=== PATIENT | male | born 1975 | race Caucasian/White ===

== ENCOUNTER 2022-02-27 09:58 | Emergency (ER) | payer OTHER, SELFPAY ==
[2022-02-27 10:28] VITALS: BP 153/89; PULSE 79; RESP 14; TEMP 36.3; O2SAT 97; BMI 35.9
--- NOTE | 2022-02-27 10:30 | DI.RAD.S_ITS ---
PROCEDURE: XR RIBS RT MIN 3V W CXR 1V INDICATIONS: fall onto R ribs with pain TECHNIQUE: 3 views of the right ribs were acquired, along with a single view chest. COMPARISON: None. FINDINGS: Surgical changes and devices: None. Bones and chest wall: No fractures or dislocations. No suspicious bony lesions. Overlying soft tissues appear unremarkable. Lungs and pleura: No pleural effusions or pneumothorax. Lungs appear clear. Mediastinum: Mediastinal contours appear normal. Heart size is normal. IMPRESSION: No visualized acute fracture or dislocation. However, if clinical concern and/or pain persist, short interval imaging followup in 7-10 days is recommended, as occult injury cannot be definitively excluded. Dictated by: Dori Michaels M.D. on 02/27/2022 at 12:16 Approved by: Dori Michaels M.D. on 02/27/2022 at 12:16
--- NOTE | 2022-02-27 12:16 | ED.FALL ---
HPI - Fall General Chief Complaint: Fall Stated Complaint: fall, at work Time Seen by Provider: 02/27/22 10:04 Source: patient Mode of arrival: Ambulatory History of Present Illness HPI Narrative: 47-year-old male nonsmoker without any chronic medical history presents at the request of the walk-in clinic for evaluation of work-related injuries just prior to his arrival. He states that he was in his normal state of health and was stepping off of a boat and fell about 4 ft onto his right-sided ribs. He denies any head neck or back pain. He had no loss of consciousness and denies nausea, vomiting or diarrhea. He has right-sided rib pain only and states that he has sharp pain on the right lateral ribs that is worse with palpation, motion and deep breath. He does not feel short of breath but states it deep breath hurts. He denies any hemoptysis. He denies any abdominal pain or extremity pain. Related Data Previous Rx's Medication Instructions Recorded cyclobenzaprine 10 mg tablet 10 mg PO TID PRN muscle spasm #14 02/27/22 tabs ketorolac 10 mg tablet 10 mg PO Q6H PRN pain #14 tabs 02/27/22 lidocaine 5 % topical patch 1 patch topical DAILY #15 ea 02/27/22 (Lidoderm) Allergies Allergy/AdvReac Type Severity Reaction Status Date / Time acetaminophen [From VICODIN] Allergy Severe PASSED Verified 02/27/22 10:28 OUT hydrocodone [From VICODIN] Allergy Severe PASSED Verified 02/27/22 10:28 OUT Review of Systems Review of Systems Narrative: GENERAL: Denies chills, fatigue, malaise, fever, sweats. HEENT: Denies sinus pain, ear pain, sore throat, difficulty swallowing, dizziness. RESPIRATORY: Denies dyspnea, cough, wheezing, hemoptysis, sputum. CARDIOVASCULAR: See HPI GASTROINTESTINAL: Denies nausea, vomiting, abdominal pain, diarrhea, constipation, melena. : Denies dysuria, frequency, incontinence, hematuria, urinary retention. MUSCULOSKELETAL: denies weakness, joint pain, or bony pain SKIN: Denies rash, skin lesions, or other NEUROLOGIC: Denies weakness, headache, numbness, change in speech, confusion, seizures, incoordination. PSYCHIATRIC: No concerning psychosocial issues. 12 point review of systems is negative except for those stated above Patient History Social History Smoking Status: Never smoker Smoking Status: Never smoker alcohol intake frequency: holidays/special occasions only Substance Use Type: does not use Exam Narrative Exam Narrative: GENERAL: [47] year old patient appears stated age. Well-developed patient, in mild distress. GCS 15 HEAD: Atraumatic. Normocephalic. EYES: Pupils equal round and reactive. Extraocular motions intact. No scleral icterus. No injection or drainage. ENT: Nose without bleeding, purulent drainage. Throat without erythema, tonsillar hypertrophy or exudate. Airway patent. NECK: Trachea midline. Non tender CARDIOVASCULAR: Regular rate and rhythm without murmurs, gallops, or rubs. RESPIRATORY: Clear to auscultation. Breath sounds equal bilaterally. No wheezes, rales, or rhonchi. Right lateral rib pain to palpation, no crepitance, subcu emphysema or clicking. GASTROINTESTINAL: Abdomen soft, non-tender, nondistended. Pain stops at most inferior rib, special attention paid to right upper quadrant, no pain in abdomen, swelling, bruising, erythema EXTREMITIES: No edema or joint tenderness. BACK: Nontender without deformity or crepitance. No flank tenderness. NEURO: AOx3. SKIN: No rash or erythema of visible areas Initial Vital Signs Initial Vital Signs: Vital Signs Temperature 97.4 F L 02/27/22 10:28 Pulse Rate 79 02/27/22 10:28 Respiratory Rate 14 02/27/22 10:28 Blood Pressure 153/89 H 02/27/22 10:28 Pulse Oximetry 97 02/27/22 10:28 Oxygen Delivery Method 02/27/22 10:28 Course Orders Ordered: Discontinued Medications Ketorolac Tromethamine (Ketorolac 30 Mg/Ml Vial) 30 mg IM NOW ONE Stop: 02/27/22 12:26 Last Admin: 02/27/22 12:36 Dose: 30 mg Documented By: JAGRUTI Lidocaine (Lidocaine Patch 1 Each Adh..Patch) 1 each TOP NOW ONE Stop: 02/27/22 12:26 Last Admin: 02/27/22 12:36 Dose: 1 each Documented By: JAGRUTI Vital Signs Vital signs: Vital Signs - 8 hr 02/27/22 10:28 Temperature 97.4 F L Pulse Rate 79 Respiratory Rate 14 Blood Pressure 153/89 H Pulse Oximetry 97 Oxygen Delivery Method Room Air MDM - Fall Imaging Data Chest x-ray: Radiologist's Impression: [address] [address] XRay Report Signed Patient: Fahad Goldman MR#: [id number] : 1975 Acct:[id number] Age/Sex: 47 / M Date of Service: 02/27/22 Loc: ED Accession Number: [id number] ?? Procedure: XR ribs RT min 3V w CXR1V Ordering Provider: Viktor Morales D.O. PROCEDURE:? XR RIBS RT MIN 3V W CXR 1V ? INDICATIONS:? fall onto R ribs with pain ? TECHNIQUE:? 3 views of the right ribs were acquired, along with a single view chest.? ? COMPARISON:? None. ? FINDINGS:? ? Surgical changes and devices:? None.? ? Bones and chest wall:? No fractures or dislocations.? No suspicious bony lesions.? Overlying soft tissues appear unremarkable.? ? Lungs and pleura:? No pleural effusions or pneumothorax.? Lungs appear clear.? ? Mediastinum:? Mediastinal contours appear normal.? Heart size is normal.? ? IMPRESSION:? No visualized acute fracture or dislocation. However, if clinical concern and/or pain persist, short interval imaging followup in 7-10 days is recommended, as occult injury cannot be definitively excluded. ? ? Dictated by: Dori Michaels M.D. on 02/27/2022 at 12:16 ? ? Approved by: Dori Michaels M.D. on 02/27/2022 at 12:16 ? [facility] Narrative Medical decision making narrative: [47-year-old male with right-sided rib pain after fall from about 4 ft] Multiple etiologies for patient's symptoms considered including, but not limited to: [Rib fracture, contusion, musculoskeletal injury including spasm and inflammation, pneumothorax versus other] Prior Charts reviewed: Including walk-in clinic visit from earlier today Imaging reviewed: No fracture or pneumothorax Patient's symptoms improved over duration of stay with above-stated therapies. Findings and discharge diagnosis discussed with patient/family followed by verbalization of understanding Return precautions discussed with patient/family whom verbalize understanding of diagnosis and plan Discharge Plan Departure Patient Disposition: Home Clinical Impression: Pain in rib Instructions: DI for Rib Contusion Activity Restrictions/Additional Instructions: *You have been diagnosed with [fall with right-sided rib pain. As we discussed your history and physical exam is reassuring and imaging demonstrates no obvious fracture or collapsed lung] *What to do: *Please continue to take your regular medications as directed. [x ] New medication prescriptions sent to your pharmacy: [[facility] ] [ ] New medication written as a paper prescription [ ] No new medications given *Please follow up with your primary care provider in 2-3 days, call for an appointment. Let them know you were seen in the Emergency Department and that we ask that you be seen in follow up. We will electronically transmit a record of today's note if your PCP is in our system *If you do not have a primary care provider please contact the [facility] Resource line at [phone]. They will ask some questions about your medical history and help get you set up with a doctor in the community. *Return to Emergency Department if you should have any new, worsening or concerning symptoms, such as [fever greater than 101 F, shaking chills, worsening pain, persistent vomiting or other bothersome symptoms] Prescriptions: New cyclobenzaprine 10 mg tablet 10 mg PO TID PRN (Reason: muscle spasm) Qty: 14 0RF ketorolac 10 mg tablet 10 mg PO Q6H PRN (Reason: pain) Qty: 14 0RF lidocaine [Lidoderm] 5 % adhesive patch,medicated 1 patch TOP DAILY Qty: 15 0RF Rx Instructions: leave on most painful area for 12 hrs Referrals: Miscellaneous,Doctor, MD [Primary Care Provider] - Stand Alone Forms: Patient Portal/API, Work Release Note
[2022-02-27] MEDS: KETOROLAC 30 MG/ML VIAL IM (12:36)
[2022-02-27] MEDS: LIDOCAINE PATCH 1 EACH ADH..PATCH TOP (12:36)
[2022-02-27 12:45] VITALS: BP 168/100; PULSE 72; O2SAT 97
== END 2022-02-27 12:45 | disposition home or self-care (01) ==
PROVIDERS: Emergency Provider Emergency Medicine
DX: S20.219A Contusion of unspecified front wall of thorax, initial encounter (principal); R07.81 Pleurodynia; W17.89XA Other fall from one level to another, initial encounter; Y99.0 Civilian activity done for income or pay
CPT/HCPCS: 71101; 96372; 99283; 99284; J1885